=== PATIENT | female | born 1965 | race African-American/Black ===

== ENCOUNTER 2020-09-07 11:49 | Emergency (ER) | payer OTHER ==
[2020-09-07 12:07] VITALS: BP 144/75
--- NOTE | 2020-09-07 13:41 | Event Note ---
ED Screening Note Date of service: 09/07/20 Time: 13:38 ED Screening Note: 54-year-old female patient with history of hypertension and "enlarged heart" presents to the emergency department with complaints of dizziness, headaches, chest pain, and palpitations starting 2 days ago. Symptoms began with dizziness while attempting to get out of bed on Thursday morning. Patient fell back into bed because she was unable to maintain her balance while standing. Dizziness was intermittent on the first day but has become more constant. She was evaluated by her primary care provider, who discontinued her Lisinopril, and started the patient on Meclizine. Symptoms improved transiently with the Me clizine but now her dizziness is present even at rest. Primary care provider sent patient to the emergency department for further evaluation. She is not currently under the care of a relief mate. Bradycardic in triage. General: Awake, appropriately interactive, no acute distress. Eyes: EOMI, pupils equal and round, no nystagmus. Neck: Supple. Full range of motion intact. Cardiovascular: Normal peripheral perfusion. Pulmonary: No respiratory distress. Patient is speaking normally without use of accessory muscles. Skin: No apparent rashes or lesions. Neurological: Speech is clear. Follows commands. Minimal left eye ptosis is consistent with baseline per patient and family. Musculoskeletal: Moves all four extremities spontaneously with normal range of motion. Psych: Cooperative. Appropriate mood and affect. Initial labs and EKG ordered. Decision to obtain imaging studies deferred to additional ED providers following full history and comprehensive physical examination. I have greeted and performed a focused rapid initial assessment of this patient. A comprehensive ED assessment and evaluation of the patient, analysis of all test results, and completion of the medical decision-making process will be conducted by additional ED providers. This initial assessment/diagnostic orders/clinical plan/treatment(s) is/are subject to change based on patients health status, clinical progression and re-assessment. Further treatment and workup at subsequent clinical provider's discretion. Patient/guardian urged not to elope from the ED as their condition may be serious if not clinically assessed and managed.
--- NOTE | 2020-09-07 14:07 | XRay Report ---
CHEST 2 VIEWS INDICATION / CLINICAL INFORMATION: chest pain/palpitations. COMPARISON: None available. FINDINGS: SUPPORT DEVICES: None. HEART / MEDIASTINUM: No significant abnormality. LUNGS / PLEURA: No significant pulmonary or pleural abnormality. No pneumothorax. ADDITIONAL FINDINGS: No significant additional findings. IMPRESSION: 1. No acute findings. Signer Name: Mino Lino MD Signed: 09/07/2020 2:02 PM Workstation Name: [id number]
[2020-09-07 15:19] LABS: Basophils # (Auto) 0.1 K/mm3 (0.0-0.1); Basophils % (Auto) 1.1 % (0.0-1.8); Eosinophils # (Auto) 0.1 K/mm3 (0.0-0.4); Eosinophils % (Auto) 1.1 % (0.0-4.3); Hematocrit 43.8 % (30.3-42.9); Hemoglobin 14.9 gm/dl (10.1-14.3); Lymphocytes # (Auto) 2.1 K/mm3 (1.2-5.4); Lymphocytes % (Auto) 33.3 % (13.4-35.0); Mean Corpuscular HGB Conc 34 % (30-34); Mean Corpuscular Volume 93 fl (79-97); Monocytes # (Auto) 0.3 K/mm3 (0.0-0.8); Monocytes % (Auto) 4.5 % (0.0-7.3); Platelet Count 295 K/mm3 (140-440); Red Blood Count 4.72 M/mm3 (3.65-5.03); Red Cell Distribution Width 13.4 % (13.2-15.2)
[2020-09-07 15:45] LABS: Alanine Aminotransferase 22 units/L (7-56); Albumin 4.4 g/dL (3.9-5); Blood Urea Nitrogen 11 mg/dL (7-17); Calcium 9.5 mg/dL (8.4-10.2); Hemolysis Index 10
[2020-09-07 16:13] LABS: BUN/Creatinine Ratio 18
--- NOTE | 2020-09-07 18:31 | Electrocardiograph Report ---
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
--- NOTE | 2020-09-07 21:47 | Emergency Department Report ---
ED Dizziness HPI - General Chief Complaint: Dizziness Stated Complaint: DIZZINESS SENT TO ER Time Seen by Provider: 09/07/20 21:41 Source: patient Mode of arrival: Ambulatory Limitations: No Limitations - History of Present Illness Initial Comments: Patient is a 34-year-old female who presents emergency room with complaints of dizziness and lightheadedness. Patient states her symptoms started 3 days ago. Patient states that she went to her doctor 2 days ago and had her urine checked and then returned today to the doctor's office for follow-up and additional fluids unchanged. The doctor's office then sent her to the emergency room to be evaluated. Only testing done by the primary care is a urinalysis. Patient states that her urinalysis was normal. Patient states that her dizziness is continued. 3 days. Patient states that she has not been given any type of medications or instructed to increase water or decrease salt. Patient states she has a past medical history of hypertension. Patient states she was diagnosed many years ago with an enlarged heart in [place]. Patient states that she is never had an ultrasound or a chest x-ray to confirm this. Patient states she is not sure how her heart was diagnosed to be enlarged. Patient denies shortness of breath. Patient denies dyspnea on exertion. Patient denies chest pain. Patient denies nausea vomiting. Patient denies recent travel. Patient denies recent international travel. Patient denies exposure to the novel coronavirus. Patient denies sick contacts. Patient denies fever and chills. Patient denies cough. Patient denies diarrhea. Patient denies coming in contact with anybody with symptoms of the novel coronavirus. Patient's granddaughter at bedside for translation due to the patient not speaking very much Vietnamese. Complaint: dizziness, lightheadedness -: Sudden Timing: sudden onset, intermittent Description: lightheadedness History of Same: No History of Trauma: No Severity: moderate Improves With: rest Worsens With: movement, position, exertion Associated Symptoms: denies: chest pain, confusion, cough, diaphoresis, fever/chills, loss of appetite, malaise, rash, seizure, shortness of breath, syncope, weakness - Related Data Allergies Allergy/AdvReac Type Severity Reaction Status Date / Time No Known Allergies Allergy Unverified 09/07/20 12:04 ED Review of Systems ROS: Stated complaint: DIZZINESS SENT TO ER Other details as noted in HPI Constitutional: denies: chills, fever Eyes: denies: eye pain, eye discharge, vision change ENT: denies: ear pain, throat pain Respiratory: denies: cough, shortness of breath, wheezing Cardiovascular: denies: chest pain, palpitations Endocrine: no symptoms reported Gastrointestinal: denies: abdominal pain, nausea, diarrhea Genitourinary: denies: urgency, dysuria, discharge Musculoskeletal: denies: back pain, joint swelling, arthralgia Skin: denies: rash, lesions Neurological: as per HPI. denies: headache, weakness, paresthesias Psychiatric: denies: anxiety, depression Hematological/Lymphatic: denies: easy bleeding, easy bruising ED Past Medical Hx - Past Medical History Previous Medical History?: Yes Hx Hypertension: Yes - Surgical History Past Surgical History?: No - Family History Family history: no significant - Social History Smoking Status: Never Smoker Substance Use Type: None ED Physical Exam - General Limitations: Language Barrier General appearance: alert, in no apparent distress - Head Head exam: Present: atraumatic, normocephalic - Eye Eye exam: Present: normal appearance - ENT ENT exam: Present: mucous membranes moist - Neck Neck exam: Present: normal inspection - Respiratory Respiratory exam: Present: normal lung sounds bilaterally. Absent: respiratory distress, wheezes, rales - Cardiovascular Cardiovascular Exam: Present: regular rate, normal rhythm, normal heart sounds. Absent: systolic murmur, diastolic murmur, rubs, gallop - GI/Abdominal GI/Abdominal exam: Present: soft, normal bowel sounds. Absent: distended, tenderness, guarding - Rectal Rectal exam: Present: deferred - Extremities Exam Extremities exam: Present: normal inspection, full ROM. Absent: tenderness - Back Exam Back exam: Present: normal inspection - Neurological Exam Neurological exam: Present: alert, oriented X3, CN II-XII intact, normal gait, reflexes normal. Absent: motor sensory deficit - Psychiatric Psychiatric exam: Present: normal affect, normal mood - Skin Skin exam: Present: warm, dry, intact, normal color. Absent: rash ED Course Vital Signs 09/07/20 12:06 Temperature 98.3 F Pulse Rate 58 L Respiratory 18 Rate Blood Pressure 144/75 [Right] O2 Sat by Pulse 98 Oximetry - Reevaluation(s) Reevaluation #1: Patient states she is feeling better. Patient states her symptoms have resolved. Patient status post IV bolus. Patient states she is ambulating without dizziness. I discussed all results and clinical findings with patient. I discussed plan of care with patient. Patient agrees with plan of care. Patient is stable for discharge. Patient will be discharged home. Patient given discharge instructions. Patient voiced understanding of discharge instructions. 09/08/20 00:30 ED Medical Decision Making - Lab Data Result diagrams: 09/07/20 15:01 09/07/20 15:01 - EKG Data -: EKG Interpreted by Me EKG shows normal: sinus rhythm, axis, intervals, QRS complexes, ST-T waves Rate: bradycardia - EKG Data Interpretation: other (PVC) - Radiology Data Radiology results: report reviewed, image reviewed interpreted by me: Chest x-ray: No pneumonia, no pneumothorax, no foreign body, no osseous findings, no acute findings CHEST 2 VIEWS INDICATION / CLINICAL INFORMATION: chest pain/palpitations. COMPARISON: None available. FINDINGS: SUPPORT DEVICES: None. HEART / MEDIASTINUM: No significant abnormality. LUNGS / PLEURA: No significant pulmonary or pleural abnormality. No pneumothorax. ADDITIONAL FINDINGS: No significant additional findings. IMPRESSION: 1. No acute findings. NONENHANCED CT SCAN OF THE HEAD: INDICATION / CLINICAL INFORMATION: 54 years Female; dizziness. TECHNIQUE: Routine CT head without contrast. All CT scans at this location are performed using CT dose reduction for ALARA by means of automated exposure control. COMPARISON: None. FINDINGS: BRAIN / INTRACRANIAL CONTENTS: No acute hemorrhage, mass effect, midline shift, hydrocephalus, or acute, large territorial infarct. No chronic infarct or focal atrophy. Normal brain volume and ventricular/sulcal size for age. No significant white matter abnormality. CRANIOCERVICAL JUNCTION: No significant abnormality. ORBITS: No significant abnormality of visualized orbits. SINUSES / MASTOIDS: No significant abnormality of the visualized paranasal sinuses or mastoid air cells. ADDITIONAL FINDINGS: None. IMPRESSION: No acute focal parenchymal lesion - Medical Decision Making Patient is a 54-year-old female presents emergency room with complaints of dizziness. Patient's dizziness worsening. Patient was seen by her primary care and primary care referred her on her second visit for the same complaint. Patient had labs done which were essentially unremarkable. Patient had an EKG which was negative for acute findings or sinus bradycardia. Patient had a chest x-ray which was negative for acute finding. Personally reviewed the chest x- ray and EKG. Patient had a head CT which was negative for acute findings. Patient was given IV fluids and the patient symptoms completely resolved. Patient's dizziness is most likely secondary to inadequate oral fluid intake. Patient instructed to increase her fluid. Patient was amatory and asymptomatic after treatment. Patient does not require further emergency medical service. Patient not require inpatient services. Patient is stable for discharge. Patient discharged home. - Differential Diagnosis Dizziness, dehydration, electrolyte imbalance, ICH, Critical care attestation.: If time is entered above; I have spent that time in minutes in the direct care of this critically ill patient, excluding procedure time. ED Disposition Clinical Impression: Dehydration, Dizziness Disposition: DC-01 TO HOME OR SELFCARE Is pt being admited?: No Does the pt Need Aspirin: No Condition: Stable Instructions: Rehydration, Adult, Dizziness, [place]uz Additional Instructions: Patient to follow-up with primary care in 2 to 3 days. 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 Patient to rest. Patient to increase water. Patient to avoid strenuous exercise or heavy lifting until cleared by cardiology and neurology. Patient to take Tylenol or ibuprofen as needed for pain. Patient to take meds as directed. Patient to return to the ER if condition worsens, changes or new symptoms arise. Referrals: PRIMARY CARE, [Primary Care Provider] - 2-3 Days JANI RANGEL MD [Staff Physician] - 2-3 Days MARTELL AMIN MD [Staff Physician] - 2-3 Days Time of Disposition: 00:34
--- NOTE | 2020-09-07 22:28 | Cat Scan Report ---
NONENHANCED CT SCAN OF THE HEAD: INDICATION / CLINICAL INFORMATION: 54 years Female; dizziness. TECHNIQUE: Routine CT head without contrast. All CT scans at this location are performed using CT dos e reduction for ALARA by means of automated exposure control. COMPARISON: None. FINDINGS: BRAIN / INTRACRANIAL CONTENTS: No acute hemorrhage, mass effect, midline shift, hydrocephalus, or acu te, large territorial infarct. No chronic infarct or focal atrophy. Normal brain volume and ventricul ar/sulcal size for age. No significant white matter abnormality. CRANIOCERVICAL JUNCTION: No significant abnormality. ORBITS: No significant abnormality of visualized orbits. SINUSES / MASTOIDS: No significant abnormality of the visualized paranasal sinuses or mastoid air gustavo ls. ADDITIONAL FINDINGS: None. IMPRESSION: No acute focal parenchymal lesion Signer Name: Elizabeth Velásquez MD Signed: 09/07/2020 10:24 PM Workstation Name: [id number]
[2020-09-07] MEDS ORDERED: SODIUM CHLORIDE 0.9% 1000 ML 1,000 ML IV ONE (22:53)
== END 2020-09-08 01:30 | disposition home or self-care (01) ==
LOC: ED 11:49
DX: E86.0 Dehydration (principal); R42 Dizziness and giddiness; I10 Essential (primary) hypertension
CPT/HCPCS: 36415; 70450; 71046; 80053; 83735; 83880; 84484; 85025; 93005; 96360; 96361; 99284; J7030